=== PATIENT | female | born 2000 | race Caucasian/White ===

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

== ENCOUNTER 2019-08-13 14:12 | Emergency (ER) | payer MEDICAID ==
[~2019-08-13] VITALS: Ht 162.6 cm; Wt 64.0 kg
[2019-08-13 14:16] VITALS: Ht 162.6 cm; Wt 64.0 kg
[2019-08-13 16:23] VITALS: BP 124/73
== END 2019-08-13 17:25 | disposition home or self-care (01) ==
LOC: ED 14:12
DX: H10.32 Unspecified acute conjunctivitis, left eye (principal); L01.00 Impetigo, unspecified

== ENCOUNTER 2020-01-27 22:49 | Emergency (ER) | payer MEDICAID ==
[~2020-01-27] VITALS: Ht 162.6 cm; Wt 88.0 kg
[2020-01-27 22:53] VITALS: Ht 162.6 cm; Wt 88.0 kg
[2020-01-28 00:47] LABS: BASOPHIL % 0.3 % (0-2); PLATELET COUNT 192 x10^3mcL (130-400); RED CELL DISTRIBUTION WIDTH 15.2 % (11.5-14.5)
[2020-01-28 01:09] LABS: CARBON DIOXIDE 23.8 mmol/L (21-32); CHLORIDE SERUM 104 mmol/L (98-107); CREATININE SERUM 0.7 mg/dL (0.6-1.0); GFR1 > 60 mL/min; GLUCOSE SERUM 95 mg/dL (74-106); POTASSIUM SERUM 3.8 mmol/L (3.5-5.1); SODIUM SERUM 140 mmol/L (136-145)
[2020-01-28 01:13] LABS: ALKALINE PHOSPHATASE 77 U/L (46-116); ALT/SGPT 15 U/L (14-59); AMYLASE 42 U/L (25-115); AST/SGOT 19 U/L (15-37); BILIRUBIN TOTAL 0.1 mg/dL (0.20-1.00); LIPASE 103 IU/L (73-393); TOTAL PROTEIN, SERUM 6.6 g/dL (6.4-8.2)
[2020-01-28 01:14] LABS: ALBUMIN 2.9 g/dL (3.4-5.0)
[2020-01-28 02:51] VITALS: BP 130/80
== END 2020-01-28 02:51 | disposition short-term general hospital (02) ==
LOC: ED 22:49
PROVIDERS: Emergency Medicine
DX: O26.893 Other specified pregnancy related conditions, third trimester (principal); R10.32 Left lower quadrant pain; O20.9 Hemorrhage in early pregnancy, unspecified; Z3A.32 32 weeks gestation of pregnancy
CPT/HCPCS: J2270; J7030; Q0092